=== PATIENT | male | born 1960 | race Caucasian/White ===

== ENCOUNTER → 2016-07-17 | Outpatient (CLI) | payer OTHER | LOC: RAD 14:26 | PROVIDERS: ATTEND Neurological Surgery | DX: M54.16 Radiculopathy, lumbar region (principal) | CPT/HCPCS: 72158 ==

== ENCOUNTER → 2019-01-25 | Outpatient (CLI) | payer OTHER ==
--- NOTE | 2019-01-25 17:12 | DRAGON STRESS TEST REPORT ---
Procedure performed: Rest/stress single isotope Cardiolite SPECT imaging with exercise stress and gated SPECT imaging Exercise Myocardial Perfusion Imaging Procedure Performed: Rest/Stress - Single Isotope SPECT Imaging with Exercise and Gated SPECT Imaging. Indication: Assess chest pain Clinical History: 58 year old male with no known coronary artery disease. Cardiac risk factors include: Hypercholesterolemia Current symptomatology includes: [Atypical chest pains] Report: The patient performed treadmill exercise using a standard [place] Protocol, completing 9 minutes and completing an estimated workload of 10 METS. The heart rate was 56 BPM at baseline and increased to 146 BPM at peak exercise, which was 90 % of the maximum predicted heart rate. The resting blood pressure was 115/79 blood pressure at peak exercise was normal 164/94. The patient did not develop any symptoms other than fatigue during the procedure; specifically no chest pains. The resting ECG demonstrated sinus bradycardia 56, nonspecific mild lateral ST-T changes, poor R wave progression anterior precordial leads and immediate post stress EKG show junctional depressions in V4 to V6, not fulfilling criteria for ischemia. Myocardial perfusion imaging was performed at rest 60 minutes following the injection of 12.86 mCi of Cardiolite. At peak exercise, the patient was injected with 36.6 mCi of Cardiolite and exercise continued for 1 minutes. Gating post-stress tomographic imaging was performed 60 minutes after stress. Findings: The overall quality of the study is good. Left ventricular cavity is noted to be normal in size on both rest and stress studies. There is no transient ischemic dilatation of the left ventricle, TID ratio was 1.02. SPECT images no evidence of exercise-induced reversible ischemia, and no fixed perfusion defect. SPECT images showed reduced motion and contraction in the basal inferior wall. The LVEF post-dress was 65%. Impression: Myocardial perfusion imaging is normal. There is no reversible ischemia and no fixed perfusion defect. Overall left ventricular systolic function was normal at 65%. No prior study for comparison. MTDD
== END ==
LOC: RAD 06:44
PROVIDERS: ATTEND Internal Medicine Cardiovascular Disease
DX: R07.9 Chest pain, unspecified (principal)
CPT/HCPCS: 93017; 78452; A9500; Q9969